=== PATIENT | female | born 1995 | race Caucasian/White ===

== ENCOUNTER 2017-04-25 04:00 | Inpatient (IN) | payer BC ==
[2017-04-25] MEDS ORDERED: Sodium Chloride 0.9% 10 ML Syringe FLUSH PRN (19:04)
--- NOTE | 2017-04-25 19:04 | PCM.LDHP ---
L&D History of Present Illness - General Date of Service: 04/25/17 Admit Problem/Dx: Admission Diagnosis/Problem Admission Diagnosis/Problem Source of Information: Patient History Limitations: Reports: No Limitations - History of Present Illness Introduction:: 22 year old at 39w2d here for induction. - Related Data Allergies/Adverse Reactions: Allergies Allergy/AdvReac Type Severity Reaction Status Date / Time No Known Allergies Allergy Verified 03/24/17 17:57 Past Medical History Psychiatric History: Reports: Depression H&P Review of Systems - Review of Systems: Review Of Systems: See Below General: Reports: No Symptoms HEENT: Reports: No Symptoms Pulmonary: Reports: No Symptoms Cardiovascular: Reports: No Symptoms Gastrointestinal: Reports: No Symptoms Genitourinary: Reports: No Symptoms Musculoskeletal: Reports: No Symptoms Skin: Reports: No Symptoms Psychiatric: Reports: No Symptoms Neurological: Reports: No Symptoms Hematologic/Lymphatic: Reports: No Symptoms Immunologic: Reports: No Symptoms L&D Exam - Exam Exam: See Below - Vital Signs Vital Signs: Last Vital Signs Temp 37.0 C 04/25/17 18:53 Pulse 97 04/25/17 18:53 Resp 18 04/25/17 18:53 BP 115/80 04/25/17 18:53 Pulse Ox 97 04/25/17 18:53 Weight: 97.069 kg - OB Specific Fundal Height In cm: 39 Movement: Active Heart Tones: Present Heart Rate (FHR) Variability: Moderate (6-25 bmp) Presentation: Vertex - Rico Score Rico Score Cervix Position: Posterior Rico Score Consistency: Soft Rico Score Effacement: >80% Rico Score Dilation: 3-4 cm Rico Score Infant's Station: -2 Rico Score Total: 8 - Exam General: Alert, Oriented HEENT: PERRLA, Conjunctiva Clear, EACs Clear, EOMI, Hearing Intact, Mucosa Moist & [place], Nares Patent, Normal Nasal Septum, Posterior Pharynx Clear, TMs Clear Neck: Supple, Trachea Midline Lungs: Clear to Auscultation, Normal Respiratory Effort Cardiovascular: Regular Rate, Regular Rhythm GI/Abdominal Exam: Normal Bowel Sounds, Soft, Non-Tender, No Organomegaly, No Distention, No Abnormal Bruit, No Mass, Pelvis Stable Genitourinary: Normal external exam, Normal bimanual exam, Normal speculum exam Back Exam: Normal Inspection, Full Range of Motion Extremities: Normal Inspection, Normal Range of Motion, Non-Tender, No Pedal Edema, Normal Capillary Refill Skin: Warm, Dry, Intact Neurological: Cranial Nerves Intact, Reflexes Equal Bilateral Psychiatric: Alert, Normal Affect, Normal Mood Problem List Initiated/Reviewed/Updated: Yes Assessment/Plan Comment:: Term induction. Doing well. AROM clear fluid.
[2017-04-25] MEDS ORDERED: Oxytocin/Lactated Ringers 10 UNIT/1,000 ML BAG IV SCH ×2 (19:15)
[2017-04-25] MEDS: Lactated Ringers 1,000 ML IV SCH ×3 (19:40→23:52)
[2017-04-25] MEDS ORDERED: Bupivacaine 0.25% 10 ML SDV ONE (22:22)
[2017-04-25] MEDS ORDERED: diphenhydrAMINE 50 MG/ML SDV IVPUSH PRN (23:36)
[2017-04-25] MEDS ORDERED: fentaNYL 100 MCG/2 ML SDV EPIDUR PRN (23:36)
[2017-04-25] MEDS ORDERED: ePHEDrine 50 MG/ML SDV IVPUSH PRN (23:36)
[2017-04-25] MEDS ORDERED: Bupivacaine/fentaNYL/NS 100 ML Bag EPIDUR SCH (23:45)
--- NOTE | 2017-04-26 00:09 | PCM.PREANE ---
Preanesthetic Assessment - Anesthesia/Transfusion/Family Hx Anesthesia History: Prior Anesthesia Without Reaction Family History of Anesthesia Reaction: No Transfusion History: No Prior Transfusion(s) - Review of Systems General: No Symptoms Pulmonary: No Symptoms Cardiovascular: No Symptoms Gastrointestinal: No Symptoms Neurological: No Symptoms Other: Reports: None - Physical Assessment Pulse: 84 O2 Sat by Pulse Oximetry: 97 Respiratory Rate: 18 Blood Pressure: 118/54 Temperature: 36.6 C Vital Signs: Last Vital Signs Temp 37.0 C 04/25/17 18:53 Pulse 97 04/25/17 18:53 Resp 18 04/25/17 18:53 BP 115/80 04/25/17 18:53 Pulse Ox 97 04/25/17 18:53 Height: 1.65 m Weight: 97.069 kg ASA Class: 2 Mental Status: Alert & Oriented x3 Airway Class: Mallampati = 1 Dentition: Reports: Normal Dentition Thyro-Mental Finger Breadths: 3 Mouth Opening Finger Breadths: 3 ROM/Head Extension: Full Lungs: Clear to Auscultation, Normal Respiratory Effort Cardiovascular: Regular Rate, Regular Rhythm - Lab Values: Laboratory Last Values WBC 12.14 K/mm3 (3.98-10.04) H 04/25/17 19:21 RBC 3.82 M/mm3 (3.98-5.22) L 04/25/17 19:21 Hgb 11.1 gm/L (11.2-15.7) L 04/25/17 19:21 Hct 33.1 % (34.1-44.9) L 04/25/17 19:21 MCV 86.6 fl (79.4-94.8) 04/25/17 19:21 MCH 29.1 pg (25.6-32.2) 04/25/17 19:21 MCHC 33.5 g/dl (32.2-35.5) 04/25/17 19:21 RDW Std Deviation 41.6 fL (36.4-46.3) 04/25/17 19:21 Plt Count 161 K/mm3 (182-369) L 04/25/17 19:21 MPV 12.6 fl (9.4-12.3) H 04/25/17 19:21 - Allergies Allergies/Adverse Reactions: Allergies Allergy/AdvReac Type Severity Reaction Status Date / Time No Known Allergies Allergy Verified 03/24/17 17:57 - Anesthesia Plan Pre-Op Medication Ordered: None - Acknowledgements Anesthesia Type Planned: Epidural Pt an Appropriate Candidate for the Planned Anesthesia: Yes Alternatives and Risks of Anesthesia Discussed w Pt/Guardian: Yes Pt/Guardian Understands and Agrees with Anesthesia Plan: Yes PreAnesthesia Questionnaire HEENT History: Reports: Impaired Vision, Other (See Below) Other HEENT History: wears glasses Gastrointestinal History: Reports: GERD Genitourinary History: Reports: UTI, Recurrent POLICE LIAISON History: Reports: Psychiatric History: Reports: Depression - SUBSTANCE USE Smoking Status *Q: Never Smoker Second Hand Smoke Exposure: No Recreational Drug Use History: No - CURRENT (IN HOUSE) MEDS Current Meds: Current Medications Diphenhydramine HCl (Benadryl) 25 mg IVPUSH Q6H PRN PRN Reason: Itching Ephedrine Sulfate (Ephedrine Sulfate) 5 mg IVPUSH ASDIRECTED PRN PRN Reason: HYPOTENTSION Fentanyl (Sublimaze) 100 mcg EPIDUR Q3H PRN PRN Reason: PAIN Last Admin: 04/26/17 00:02 Dose: 100 mcg Fentanyl/Bupivacaine HCl (Fentanyl/Bupivacaine/Ns 2 Mcg-0.125% 100 Ml) 100 ml EPIDUR ASDIRECTED SHANTEL Last Admin: 04/26/17 00:03 Dose: 100 ml Lactated Ringer's (Ringers, Lactated) 1,000 mls @ 100 mls/hr IV ASDIRECTED SHANTEL Last Admin: 04/25/17 23:52 Dose: 100 mls/hr Oxytocin/Lactated Ringer's (Pitocin In Lr 10 Units/1,000 Ml) 10 unit in 1,000 mls @ 12 mls/hr IV TITRATE SHANTEL; 2 MUNITS/MIN PRN Reason: Protocol Last Titration: 04/25/17 23:18 Dose: 4 munits/min, 24 mls/hr Oxytocin/Lactated Ringer's (Pitocin In Lr 10 Units/1,000 Ml) 10 unit in 1,000 mls @ 500 mls/hr IV .CONTINUOUS SHANTEL Sodium Chloride (Saline Flush) 10 ml FLUSH ASDIRECTED PRN PRN Reason: Keep Vein Open
[2017-04-26] MEDS ORDERED: Witch Hazel Medicated Pads 100/Jar TOP PRN (04:35)
[2017-04-26] MEDS ORDERED: Ibuprofen 600 MG Tab PO PRN (04:35)
[2017-04-26] MEDS ORDERED: Lanolin 100% Cream 7 GM Tube TOP PRN (04:35)
[2017-04-26] MEDS ORDERED: Docusate Sodium 100 MG Cap PO PRN (04:35)
--- NOTE | 2017-04-26 08:57 | PCM48HPAN ---
Post Anesthesia Note - EVALUATION WITHIN 48HRS OF ANESTHETIC Vital Signs in Normal Range: Yes Patient Participated in Evaluation: Yes Respiratory Function Stable: Yes Airway Patent: Yes Cardiovascular Function Stable: Yes Hydration Status Stable: Yes Pain Control Satisfactory: Yes Nausea and Vomiting Control Satisfactory: Yes Mental Status Recovered: Yes Pulse Rate: 84 Resp Rate: 18 Temperature: 97.9 F Blood Pressure: 118/54
--- NOTE | 2017-04-27 03:20 | PCM.DCSUM1 ---
Discharge Summary - Discharge Data Discharge Date: 04/27/17 Discharge Disposition: Home, Self-Care 01 Condition: Good - Patient Instructions Diet: Usual Diet as Tolerated Activity: No Strenuous Activities Driving: May Drive Today Showering/Bathing: June Shower Wound/Incision Care: Keep Operative Site/Wound Site Clean and Dry Notify Provider of: Fever, Increased Pain, Swelling and Redness, Drainage, Nausea and/or Vomiting - Discharge Plan - Discharge Summary/Plan Comment DC Time >30 min.: No - General Info Date of Service: 04/27/17 - Review of Systems General: Reports: No Symptoms HEENT: Reports: No Symptoms Pulmonary: Reports: No Symptoms Cardiovascular: Reports: No Symptoms Gastrointestinal: Reports: No Symptoms Genitourinary: Reports: No Symptoms Musculoskeletal: Reports: No Symptoms Skin: Reports: No Symptoms Neurological: Reports: No Symptoms Psychiatric: Reports: No Symptoms - Patient Data Vitals - Most Recent: Last Vital Signs Temp 36.8 C 04/26/17 21:13 Pulse 88 04/26/17 21:13 Resp 16 04/26/17 21:13 BP 125/81 04/26/17 21:13 Pulse Ox 97 04/26/17 21:13 Weight - Most Recent: 97.069 kg I&O - Last 24 hours: Intake & Output 04/26/17 04/26/17 04/27/17 14:59 22:59 06:59 Intake Total 120 Balance 120 Med Orders - Current: Current Medications Docusate Sodium (Colace) 100 mg PO BID PRN PRN Reason: Constipation Emollient Ointment (Lansinoh Hpa) 0 gm TOP ASDIRECTED PRN PRN Reason: Sore Nipples Last Admin: 04/26/17 10:34 Dose: 1 tube Ibuprofen (Motrin) 600 mg PO Q6H PRN PRN Reason: Mild pain or fever Last Admin: 04/26/17 14:52 Dose: 600 mg Witch Nanci (Tucks) 1 pad TOP ASDIRECTED PRN PRN Reason: Hemorrhoid pain Last Admin: 04/26/17 06:05 Dose: 1 applic Discontinued Medications Diphenhydramine HCl (Benadryl) 25 mg IVPUSH Q6H PRN PRN Reason: Itching Ephedrine Sulfate (Ephedrine Sulfate) 5 mg IVPUSH ASDIRECTED PRN PRN Reason: HYPOTENTSION Fentanyl (Sublimaze) 100 mcg EPIDUR Q3H PRN PRN Reason: PAIN Last Admin: 04/26/17 00:02 Dose: 100 mcg Fentanyl/Bupivacaine HCl (Fentanyl/Bupivacaine/Ns 2 Mcg-0.125% 100 Ml) 100 ml EPIDUR ASDIRECTED SHANTEL Last Admin: 04/26/17 00:03 Dose: 100 ml Lactated Ringer's (Ringers, Lactated) 1,000 mls @ 100 mls/hr IV ASDIRECTED SHANTEL Last Admin: 04/25/17 23:52 Dose: 100 mls/hr Oxytocin/Lactated Ringer's (Pitocin In Lr 10 Units/1,000 Ml) 10 unit in 1,000 mls @ 12 mls/hr IV TITRATE SHANTEL; 2 MUNITS/MIN PRN Reason: Protocol Last Titration: 04/26/17 02:33 Dose: 10 munits/min, 60 mls/hr Oxytocin/Lactated Ringer's (Pitocin In Lr 10 Units/1,000 Ml) 10 unit in 1,000 mls @ 500 mls/hr IV .CONTINUOUS SHANTEL Sodium Chloride (Saline Flush) 10 ml FLUSH ASDIRECTED PRN PRN Reason: Keep Vein Open - Exam General: Reports: Alert, Oriented HEENT: Reports: Pupils Equal, Pupils Reactive, EOMI, Mucous Membr. Moist/[place] Neck: Reports: Supple Lungs: Reports: Clear to Auscultation, Normal Respiratory Effort Cardiovascular: Reports: Regular Rate, Regular Rhythm GI/Abdominal Exam: Normal Bowel Sounds, Soft, Non-Tender, No Organomegaly, No Distention, No Abnormal Bruit, No Mass, Pelvis Stable (Female) Exam: Normal External Exam, Normal Speculum Exam, Normal Bimanual Exam Back Exam: Reports: Normal Inspection, Full Range of Motion Extremities: Normal Inspection, Normal Range of Motion, Non-Tender, No Pedal Edema, Normal Capillary Refill Skin: Reports: Warm, Dry, Intact Wound/Incisions: Reports: Healing Well Neurological: Reports: No New Focal Deficit Psy/Mental Status: Reports: Alert, Normal Affect, Normal Mood *Q Meaningful Use (DIS) - VTE *Q VTE Criteria *Q: - Stroke *Q Stroke Criteria *Q: - AMI *Q AMI Criteria *Q:
== END 2017-04-27 11:15 | disposition home or self-care (01) | DRG 560 ==
LOC: JD.OB 04:00 → OBSVTOIN 04-26 04:00 → JD.OB 04-26 04:00
PROVIDERS: ADMIT Obstetrics & Gynecology; ATTEND Obstetrics & Gynecology
PROC: 10E0XZZ Delivery of Products of Conception, External Approach (ICD-10-PCS; principal; 2017-04-26)
PROC: 10907ZC Drainage of Amniotic Fluid, Therapeutic from Products of Conception, Via Natural or Artificial Opening (ICD-10-PCS; 2017-04-26)
PROC: 3E033VJ Introduction of Other Hormone into Peripheral Vein, Percutaneous Approach (ICD-10-PCS; 2017-04-26)
PROC: 00HU33Z Insertion of Infusion Device into Spinal Canal, Percutaneous Approach (ICD-10-PCS; 2017-04-26)
PROC: 3E0R3BZ Introduction of Anesthetic Agent into Spinal Canal, Percutaneous Approach (ICD-10-PCS; 2017-04-26)
DX: O80 Encounter for full-term uncomplicated delivery (principal); Z3A.39 39 weeks gestation of pregnancy; Z37.0 Single live birth
CPT/HCPCS: 36415; 51702; 59409; 85027; A9270-GY; J2590; J3010; J7120

== ENCOUNTER 2021-12-20 09:17 | Inpatient (IN) | payer BC, MEDICAID ==
[~2021-12-20 09:17] MED LIST: Lidocaine 1% 10 ML MDV ONE
[2021-12-20] MEDS ORDERED: Calcium Carbonate 500 MG Tab.Chew PO PRN (10:42)
[2021-12-20] MEDS ORDERED: Ondansetron 4 MG/2 ML SDV IVPUSH PRN (10:42)
[2021-12-20] MEDS ORDERED: Nalbuphine HCl 10 MG/ 1ML Amp IVPUSH PRN (10:42)
[2021-12-20] MEDS ORDERED: Oxytocin/Lactated Ringers 10 UNIT/1,000 ML BAG IV SCH ×2 (10:45)
[2021-12-20] MEDS: Lactated Ringers 1,000 ML IV SCH ×3 (11:34→16:31)
[2021-12-20] MEDS ORDERED: fentaNYL 100 MCG/2 ML SDV EPIDUR PRN ×2 (13:25→16:01)
[2021-12-20] MEDS ORDERED: diphenhydrAMINE 50 MG/ML SDV IVPUSH PRN ×2 (13:25→16:01)
[2021-12-20] MEDS ORDERED: Bupivacaine/fentaNYL/NS 100 ML Bag EPIDUR PRN ×2 (13:25→16:01)
[2021-12-20] MEDS ORDERED: ePHEDrine 50 MG/ML SDV IVPUSH PRN ×2 (13:25→16:01)
[2021-12-20] MEDS ORDERED: Acetaminophen 325 MG Tab PO PRN (17:44)
[2021-12-20] MEDS ORDERED: Witch Hazel Medicated Pads 40/Jar TOP PRN (17:44)
[2021-12-20] MEDS ORDERED: Benzocaine/Menthol 20%-0.5% Spray 78 GM Cannister TOP PRN (17:44)
[2021-12-20] MEDS ORDERED: Docusate Sodium 100 MG Cap PO PRN (17:44)
[2021-12-21] MEDS ORDERED: Prenatal Multivitamin with Calcium/Folic Acid/Iron Tab PO SCH (09:00)
[2021-12-21] MEDS: Ibuprofen 600 MG Tab PO PRN ×2 (09:12→14:35)
[2021-12-21] MEDS ORDERED: Lactated Ringers 1,000 ML IV ONE (13:30)
== END 2021-12-21 19:10 | disposition home or self-care (01) | DRG 807 ==
LOC: JD.OBCHECK 09:17 → JD.OB 09:19 → JD.OBCHECK 10:42 → JD.OB 17:11 → OBSVTOIN 17:11 → JD.OB 17:12
PROVIDERS: ADMIT Obstetrics & Gynecology; ATTEND Obstetrics & Gynecology
PROC: 10E0XZZ Delivery of Products of Conception, External Approach (ICD-10-PCS; principal; 2021-12-20)
PROC: 3E0R3BZ Introduction of Anesthetic Agent into Spinal Canal, Percutaneous Approach (ICD-10-PCS; 2021-12-20)
PROC: 00HU33Z Insertion of Infusion Device into Spinal Canal, Percutaneous Approach (ICD-10-PCS; 2021-12-20)
DX: O42.12 Full-term premature rupture of membranes, onset of labor more than 24 hours following rupture (principal); Z37.0 Single live birth; Z3A.39 39 weeks gestation of pregnancy; O99.62 Diseases of the digestive system complicating childbirth; K21.9 Gastro-esophageal reflux disease without esophagitis; Z87.891 Personal history of nicotine dependence
CPT/HCPCS: 01967; 36415; 51702; 59025; 59409; 62273; 84112; 85025; 86592; 86850; 86900; 86901; A9270-GY; J2590; J7120

== ENCOUNTER 2023-06-19 13:08 | Day surgery (SDC) | payer MEDICAID ==
[~2023-06-19 13:08] MED LIST changes: -Lidocaine 1% 10 ML MDV ONE; +cefOXitin 2 GM in Sodium Chloride 0.9% 50 ML IV ONE
[2023-06-19] MEDS: Lactated Ringers 1,000 ML IV SCH (13:45)
[2023-06-19] MEDS ORDERED: Propofol 200 MG/20 ML SDV ONE (13:51)
[2023-06-19] MEDS ORDERED: Rocuronium 50 MG/5 ML Vial ONE ×2 (13:51→13:52)
[2023-06-19] MEDS ORDERED: fentaNYL 250 MCG/5 ML SDV ONE (13:51)
[2023-06-19] MEDS ORDERED: Ketorolac 30 MG/ML SDV ONE (13:52)
[2023-06-19] MEDS ORDERED: Lidocaine 1% 5 ML VIAL ONE (13:52)
[2023-06-19] MEDS ORDERED: Dexamethasone 4 MG/ML 5 ML MDV ONE (13:52)
[2023-06-19] MEDS ORDERED: Ondansetron 4 MG/2 ML SDV ONE (13:52)
[2023-06-19] MEDS ORDERED: Sodium Chloride 0.9% 10 ML Syringe FLUSH PRN (14:00)
[2023-06-19] MEDS ORDERED: ceFAZolin 2 GM Vial ONE (14:02)
[2023-06-19] MEDS ORDERED: Sugammadex Sodium 200 MG/2 ML VIAL IV ONE (14:10)
[2023-06-19] MEDS ORDERED: cefOXitin 2 GM Vial ONE (14:13)
[2023-06-19] MEDS: EPINEPHrine 1 MG/ML SDV ONE (14:15)
[2023-06-19] MEDS: Bupivacaine 0.5% 30 ML SDV ONE (14:15)
[2023-06-19] MEDS ORDERED: HYDROmorphone 0.5 MG/0.5 ML Syringe IVPUSH PRN (14:28)
[2023-06-19] MEDS ORDERED: fentaNYL 100 MCG/2 ML SDV IVPUSH PRN (14:28)
[2023-06-19] MEDS ORDERED: Ondansetron 4 MG/2 ML SDV IVPUSH PRN (14:28)
[2023-06-19] MEDS ORDERED: Sodium Chloride 0.9% 10 ML Syringe FLUSH SCH (21:00)
== END 2023-06-19 16:00 | disposition home or self-care (01) ==
LOC: JD.SDS 13:08
PROVIDERS: ATTEND Surgery
DX: K35.33 Acute appendicitis with perforation, localized peritonitis, and gangrene, with abscess (principal); K21.9 Gastro-esophageal reflux disease without esophagitis; F32.A Depression, unspecified; F41.9 Anxiety disorder, unspecified; Z87.891 Personal history of nicotine dependence; Z79.899 Other long term (current) drug therapy
CPT/HCPCS: 44970; J0171; J0665; J0690; J0694; J1100; J1596; J1885; J2405; J2704; J3010; J3490; J7120; 00840